=== PATIENT | female | born 1960 | race Caucasian/White ===

== ENCOUNTER → 2017-02-13 | Outpatient (CLI) | payer BC ==
[~2017-02-13] MED LIST: ASPI1TAB83 PO; CHOL100010 PO; NORT25CA2 PO; VAREPAK PO
[2017-02-13 12:25] LABS: BASO % 0.5 %; BASO ABS # 0.04 K/uL (0-0.2); COMPLETE YES; EOS % 4.2 %; HEMATOCRIT 45.8 % (37-47); IG% 0.1 %; LYMPH % 40.9 %; LYMPH ABS # 3.25 K/uL (1.2-3.4); MEAN CELL VOLUME 92.7 fL (80-100); MEAN CORPUSCULAR HEMOGLOBIN 30.2 pg (25-34); MEAN CORPUSCULAR HGB CONC 32.5 g/dl (32-36); MEAN PLATELET VOLUME 11.3 fL (7.4-10.4); MONO % 3.3 %; PLATELET COUNT 334 K/uL (130-400); RED BLOOD COUNT 4.94 M/uL (4.2-5.4); WHITE BLOOD COUNT 7.95 K/uL (4.8-10.8)
[2017-02-13 12:36] LABS: ALT/SGPT 21 U/L (12-78); BLOOD UREA NITROGEN 12 mg/dl (7-18); BUN/CREATININE RATIO 12.8 (10-20); CARBON DIOXIDE 26 mmol/L (21-32); CHLORIDE 105 mmol/L (98-107); CHOLESTEROL 222 mg/dl (0-200); CREATININE 0.94 mg/dl (0.60-1.20); GLUCOSE 90 mg/dl (70-99); POTASSIUM 4.3 mmol/L (3.5-5.1); SODIUM 140 mmol/L (136-145)
[2017-02-13 12:46] LABS: ALKALINE PHOSPHATASE 95 U/L (45-117); AST/SGOT 14 U/L (15-37); HDL CHOLESTEROL 56 mg/dl; LDL CHOLESTEROL CALCULATED 147 mg/dl; TRIGLYCERIDES 94 mg/dl (0-150); VERY LOW DENSITY LIPOPROT CALC 19 mg/dl
[2017-02-13 12:49] LABS: CALCIUM 9.6 mg/dl (8.5-10.1)
== END | disposition home or self-care (01) ==
LOC: C.LABBFT 07:35
PROVIDERS: ATTEND Internal Medicine
DX: Z00.00 Encounter for general adult medical examination without abnormal findings (principal); R07.9 Chest pain, unspecified; R53.83 Other fatigue

== ENCOUNTER → 2017-08-15 | Outpatient (CLI) | payer BC ==
--- NOTE | 2017-08-19 16:01 | MAMMOGRAPHY REPORT ---
BILATERAL DIGITAL SCREENING MAMMOGRAM WITH CAD: 08/15/2017 CLINICAL HISTORY: Routine screening. Patient has no complaints. TECHNIQUE: Current study was also evaluated with a Computer Aided Detection (CAD) system. Bilateral CC and MLO views were obtained. COMPARISON: Comparison is made to exams dated: 08/13/2016 mammogram and 08/04/2015 mammogram - [facility]. BREAST COMPOSITION: The tissue of both breasts is extremely dense, which lowers the sensitivity of m ammography. FINDINGS: No suspicious masses, calcifications, or areas of architectural distortion are noted in ei ther breast. There has been no significant interval change compared to prior exams. IMPRESSION: ACR BI-RADS CATEGORY 1: NEGATIVE There is no mammographic evidence of malignancy. A 1 year screening mammogram is recommended. The pa tient will receive written notification of the results. Approximately 10% of breast cancers are not detected with mammography. A negative mammographic report should not delay biopsy if a clinically suggestive mass is present. Donna Jones M.D. ah/:08/15/2017 15:58:40 Bilingual Legal Assistant: Jana PEREIRA(R)(M), [facility] letter sent: Normal 1/2 BI-RADS Code: ACR BI-RADS Category 1: Negative
== END | disposition home or self-care (01) ==
LOC: C.MAMM 07:10
PROVIDERS: ATTEND Internal Medicine
DX: Z12.31 Encounter for screening mammogram for malignant neoplasm of breast (principal)

== ENCOUNTER 2017-11-19 09:38 | Emergency (ER) | payer BC, OTHER ==
[~2017-11-19] VITALS: Ht 162.6 cm; Wt 71.9 kg
[2017-11-19 09:40] VITALS: TEMP 36.9; Ht 162.6 cm; Wt 71.9 kg
[2017-11-19] MEDS ORDERED: ASPIRIN 81 MG CHEW PO STA (10:08)
[2017-11-19] MEDS ORDERED: SODIUM CHLORIDE 0.9% 1000ML 1,000 ML IV STA (10:08)
[2017-11-19] MEDS ORDERED: NITROGLYCERIN 0.4 MG SL PER TAB CHARGE SL PRN (10:15)
[2017-11-19 10:23] LABS: BASO % 0.7 %; BASO ABS # 0.06 K/uL (0-0.2); EOS % 3.5 %; EOS ABS # 0.29 K/uL (0-0.5); HEMATOCRIT 41.7 % (37-47); HEMOGLOBIN 14.5 g/dL (12.0-16.0); IG# 0.01 K/uL (0.00-0.02); LYMPH % 46.7 %; LYMPH ABS # 3.83 K/uL (1.2-3.4); MEAN CELL VOLUME 91.9 fL (80-100); MEAN CORPUSCULAR HEMOGLOBIN 31.9 pg (25-34); MEAN CORPUSCULAR HGB CONC 34.8 g/dl (32-36); MEAN PLATELET VOLUME 10.4 fL (7.4-10.4); MONO ABS # 0.25 K/uL (0.11-0.59); NEUT ABS # 3.77 K/uL (1.4-6.5); PLATELET COUNT 274 K/uL (130-400); RED CELL DISTRIBUTION WIDTH CV 12.6 % (11.5-14.5); RED CELL DISTRIBUTION WIDTH SD 42.5 fL (36.4-46.3); WHITE BLOOD COUNT 8.21 K/uL (4.8-10.8)
--- NOTE | 2017-11-19 10:29 | DIAGNOSTIC IMAGING REPORT ---
CHEST ONE VIEW PORTABLE HISTORY: 57 years-old Female CHEST PAIN acute atypical chest pain COMPARISON: Chest radiograph 04/27/2015 TECHNIQUE: Portable AP view of the chest FINDINGS: Cardiac mediastinal and hilar silhouettes are within normal limits. Atherosclerosis of the aorta. There is no pneumothorax, pleural effusion, focal airspace consolidation or overt pulmonary edema. The bones of the chest appear grossly intact. IMPRESSION: No acute process. The above report was generated using voice recognition software. It may contain grammatical, syntax or spelling errors. Electronically signed by: Clemente Tamayo M.D. 11/19/2017 10:27 AM Dictated Date/Time: 11/19/2017 10:26 AM
[2017-11-19 10:41] LABS: ALBUMIN 3.9 gm/dl (3.4-5.0); ALT/SGPT 20 U/L (12-78); AST/SGOT 15 U/L (15-37); BLOOD UREA NITROGEN 11 mg/dl (7-18); CALCIUM 9.3 mg/dl (8.5-10.1); CARBON DIOXIDE 25 mmol/L (21-32); CREATININE 1.01 mg/dl (0.60-1.20); GLUCOSE 82 mg/dl (70-99); LIPASE 148 U/L (73-393); POTASSIUM 3.7 mmol/L (3.5-5.1); SODIUM 139 mmol/L (136-145)
[2017-11-19 10:44] LABS: ALKALINE PHOSPHATASE 89 U/L (45-117); TOTAL PROTEIN 7.4 gm/dl (6.4-8.2)
[2017-11-19] MEDS ORDERED: MoRPHine SULFATE 4 MG/ML 1 ML CARP\\VIAL IV STA (11:17)
--- NOTE | 2017-11-19 11:58 | Medical Consult ---
Consultation Date of Consultation: Nov 19, 2017. Attending Physician: History of Present Illness 57 y/o F smoker with no additional medical history. Pt presents with center R CP which has been present for 10 hours. She denies any radiation of the pain, n /v, diaphoresis, lightheadedness or SOB. Initial trop and EKG do not support acute ischemia. Past Medical/Surgical History Smoker Endometrial ablation in late 30s Family History Cancer FH: myocardial infarction FATHER Heart disease Hypertension Father with history of MS in 70s - was a nonsmoker Social History Smokes one pack daily - works in [employer] Smoking Status: Current Every Day Smoker Marital Status: single Housing Status: lives alone Occupation Status: employed Allergies Coded Allergies: No Known Allergies (Verified , 11/19/17) Current Inpatient Medications Current Inpatient Medications Medications (Trade) Dose Ordered Sig/[place] Route Start Time Stop Time Status Last Admin Dose Admin Sodium Chloride 1,000 ml @ 200 mls/hr Q5H STAT IV 11/19/17 10:08 11/19/17 15:07 11/19/17 10:22 200 MLS/HR Nitroglycerin (Nitrostat Tab) 0.4 mg Q5M PRN SL 11/19/17 10:15 12/19/17 10:14 11/19/17 10:23 0.4 MG Review of Systems Constitutional: No fever, No chills, No sweats Eyes: No worsening of vision ENT: No hearing loss, No unusual epistaxis, No nasal symptoms Respiratory: No cough, No sputum, No wheezing Cardiovascular: + chest pain Abdomen: No pain, No nausea, No vomiting Musculoskeletal: No joint pain Genitourinary - Female: No dysuria, No urinary frequency, No urinary urgency Neurologic: No memory loss, No paralysis, No weakness Psychiatric: No depression symptoms Endocrine: No fatigue Hematologic / Lymphatic: No abnormal bleeding/bruising Integumentary: No rash Allergic / Immunologic: No environmental allergies Physical Exam Date Time Temp Pulse Resp B/P (MAP) Pulse Ox O2 Delivery O2 Flow Rate FiO2 11/19/17 10:47 71 22 117/78 96 11/19/17 10:42 60 133/85 11/19/17 10:23 74 18 164/91 Room Air 11/19/17 10:02 75 11/19/17 09:40 36.9 77 18 155/91 96 Room Air General Appearance: WD/WN, no apparent distress, + pertinent finding (Average weight middle-aged F - no distress) Head: normocephalic, atraumatic Eyes: normal inspection ENT: normal ENT inspection, pharynx normal Neck: supple, no JVD Respiratory/Chest: chest non-tender, lungs clear, normal breath sounds, + pertinent finding (Chest is tender to palpation on R ) Cardiovascular: regular rate, rhythm, no edema, no gallop Abdomen/GI: normal bowel sounds, non tender, soft Back: normal inspection, no CVA tenderness Extremities/Musculoskelatal: normal inspection, no calf tenderness, normal capillary refill, no pedal edema, normal range of motion 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, no motor/sensory deficits, alert, oriented x 3 Skin: normal color Laboratory Results Last 24 Hours Test 11/19/17 10:05 11/19/17 10:30 White Blood Count 8.21 K/uL Red Blood Count 4.54 M/uL Hemoglobin 14.5 g/dL Hematocrit 41.7 % Mean Corpuscular Volume 91.9 fL Mean Corpuscular Hemoglobin 31.9 pg Mean Corpuscular Hemoglobin Concent 34.8 g/dl Platelet Count 274 K/uL Mean Platelet Volume 10.4 fL Neutrophils (%) (Auto) 46.0 % Lymphocytes (%) (Auto) 46.7 % Monocytes (%) (Auto) 3.0 % Eosinophils (%) (Auto) 3.5 % Basophils (%) (Auto) 0.7 % Neutrophils # (Auto) 3.77 K/uL Lymphocytes # (Auto) 3.83 K/uL Monocytes # (Auto) 0.25 K/uL Eosinophils # (Auto) 0.29 K/uL Basophils # (Auto) 0.06 K/uL RDW Standard Deviation 42.5 fL RDW Coefficient of Variation 12.6 % Immature Granulocyte % (Auto) 0.1 % Immature Granulocyte # (Auto) 0.01 K/uL Sodium Level 139 mmol/L Potassium Level 3.7 mmol/L Chloride Level 106 mmol/L Carbon Dioxide Level 25 mmol/L Anion Gap 8.0 mmol/L Blood Urea Nitrogen 11 mg/dl Creatinine 1.01 mg/dl Est Creatinine Clear Calc Drug Dose 61.2 ml/min Estimated GFR () 72.6 Estimated GFR (Non- 62.6 BUN/Creatinine Ratio 10.7 Random Glucose 82 mg/dl Calcium Level 9.3 mg/dl Total Bilirubin 0.3 mg/dl Direct Bilirubin < 0.1 mg/dl Aspartate Amino Transf (AST/SGOT) 15 U/L Alanine Aminotransferase (ALT/SGPT) 20 U/L Alkaline Phosphatase 89 U/L Total Protein 7.4 gm/dl Albumin 3.9 gm/dl Lipase 148 U/L Bedside Troponin I < 0.030 ng/ml Assessment & Plan 57 y/o F presenting with atypical CP Pt has risk factors - post-menopausal, smoker, family history. Presentation/ assessment, labs and EKG do not support cardiac etiology presently. We will obtain an additional trop at a 3 hour interval. If her CP has resolved and there are no changes in labs, we have arranged for an outpt stress. She is told to take 81mg ASA daily pending stress testing. She is issued a rebuke regarding her smoking - explained relation to cardiovascular disease - advised on cessation. Total time for this consult including review of labs, meds, EKG, records - discussion with pt - scheduling of stress test - 35 min Addendum 2nd trop (-) CP resolved with Toradol Stress test confirmed with Dr Carlos 12:45 09
[2017-11-19] MEDS ORDERED: KETOROLAC TROMETHAMINE 30 MG/ML VIAL IV ONE (12:15)
[2017-11-19 15:10] VITALS: BP 129/77; PULSE 56; O2SAT 99
--- NOTE | 2017-11-19 15:32 | EMERGENCY ROOM VISIT NOTE ---
ED Visit Note First contact with patient: 09:48 Chief Complaint: Chest pain. History of Present Illness: Ms. Loera is a 57 year-old white female who ambulates into the ED accompanied by her mother complaining of chest pain. Historically patient reports she has a history of tobacco use and a family history of a father who had coronary artery disease. Patient reports when she awoke this morning to get ready for work at 4 AM, almost 6 hours ago, she noted that she was having chest pain. Since that time the pain has been constant. Currently she describes her pain as a pressure- like sensation. There is mild right-sided prominence to the chest pain. She reports the pain is radiating into the epigastrium area and into the thoracic back and then up the cervical spine. Her pain slightly worsens with palpation of the sternum. She has not identified any alleviating factors related to the pain. She has not taken any medications for pain prior to arrival at the hospital. She denies any associated symptoms including recent upper respiratory tract symptoms, fevers, cough, shortness of breath, wheezing, palpitations, previous clots, claudication, cramping, recent surgery/inactivity/ estrogen and tobacco use, abdominal pain, nausea, vomiting. Additionally she does report she had a similar episode of chest pain approximately 2 years ago and reports at that time a stress test was performed and was reported as negative and she was encouraged to use 81 mg of aspirin daily; she does report she started using the aspirin but then stopped about over a year ago and has not returned. Review of Systems: As noted above in history of present illness. All body systems were reviewed and found to be negative as noted above. Past Medical History: Dyslipidemia. Current Medications: Patient denies. Allergies to Medications: Patient denies. Social History: Patient is currently employed; she feels safe in her home environment; she admits to tobacco use and denies alcohol use. Physical Examination: Vital Signs: Date Time Temp Pulse Resp B/P (MAP) Pulse Ox O2 Delivery O2 Flow Rate FiO2 11/19/17 14:01 60 18 127/76 99 Room Air 11/19/17 13:31 57 14 98 Room Air 11/19/17 13:30 137/74 11/19/17 13:17 59 11/19/17 13:01 60 14 99 Room Air 11/19/17 13:00 66 22 120/76 11/19/17 12:30 52 14 119/78 99 Room Air 11/19/17 12:01 117/74 11/19/17 12:00 57 21 97 Room Air 11/19/17 11:30 55 21 141/82 99 Room Air 11/19/17 11:20 52 15 124/77 95 Room Air 11/19/17 10:47 71 22 117/78 96 11/19/17 10:42 60 133/85 11/19/17 10:23 74 18 164/91 Room Air 11/19/17 10:02 75 11/19/17 09:40 36.9 77 18 155/91 96 Room Air GENERAL: 57-year-old female in mild distress due to pain, nontoxic-appearing, afebrile and hemodynamically stable. NEUROLOGICAL: Awake, alert and oriented to person, place and time. Answering questions appropriately and following commands. Normal gait. Good hand eye coordination. SKIN: Warm, dry and pink. No soft tissue eruptions or trauma noted. HEENT: Atraumatic and normocephalic. PERRL. Sclera white and conjunctiva pink. Oral cavity moist and pink. Pharynx is nonerythematous or edematous. Speech normal. No lymphadenopathy. Trachea midline. No jugular venous distention. No carotid bruits. BACK: No tenderness over the bony spine. No CVA tenderness. THORAX: Lungs sounds are clear to auscultation and equal bilaterally with symmetrical chest wall. No wheezing, rales or rhonchi. Mild tenderness over the lower sternum without bony deformity, bony crepitus, swelling, ecchymosis or subcutaneous air. HEART: Regular rate and rhythm. No gallops, rubs or murmurs are appreciated. No lifts, heaves or thrills. PMI is not displaced. ABDOMEN: Flat, soft and nontender. Positive bowel sounds in all quadrants. No guarding, rigidity or organomegaly. EXTREMITIES: Moves all extremities well on command and with purpose. All distal neurovascular statuses are intact and equal bilaterally. No dependent edema or calf tenderness/cords. ED Course: Patient is assessed as noted above. Patient's medication list was reviewed. Laboratory Testing: Test 11/19/17 10:05 11/19/17 10:30 11/19/17 13:36 Range/Units White Blood Count 8.21 4.8-10.8 K/uL Red Blood Count 4.54 4.2-5.4 M/uL Hemoglobin 14.5 12.0-16.0 g/dL Hematocrit 41.7 37-47 % Mean Corpuscular Volume 91.9 80-100 fL Mean Corpuscular Hemoglobin 31.9 25-34 pg Mean Corpuscular Hemoglobin Concent 34.8 32-36 g/dl Platelet Count 274 130-400 K/uL Mean Platelet Volume 10.4 7.4-10.4 fL Neutrophils (%) (Auto) 46.0 % Lymphocytes (%) (Auto) 46.7 % Monocytes (%) (Auto) 3.0 % Eosinophils (%) (Auto) 3.5 % Basophils (%) (Auto) 0.7 % Neutrophils # (Auto) 3.77 1.4-6.5 K/uL Lymphocytes # (Auto) 3.83 1.2-3.4 K/uL Monocytes # (Auto) 0.25 0.11-0.59 K/uL Eosinophils # (Auto) 0.29 0-0.5 K/uL Basophils # (Auto) 0.06 0-0.2 K/uL RDW Standard Deviation 42.5 36.4-46.3 fL RDW Coefficient of Variation 12.6 11.5-14.5 % Immature Granulocyte % (Auto) 0.1 % Immature Granulocyte # (Auto) 0.01 0.00-0.02 K/uL Sodium Level 139 136-145 mmol/L Potassium Level 3.7 3.5-5.1 mmol/L Chloride Level 106 98-107 mmol/L Carbon Dioxide Level 25 21-32 mmol/L Anion Gap 8.0 3-11 mmol/L Blood Urea Nitrogen 11 7-18 mg/dl Creatinine 1.01 0.60-1.20 mg/dl Est Creatinine Clear Calc Drug Dose 61.2 ml/min Estimated GFR () 72.6 Estimated GFR (Non- 62.6 BUN/Creatinine Ratio 10.7 10-20 Random Glucose 82 70-99 mg/dl Calcium Level 9.3 8.5-10.1 mg/dl Total Bilirubin 0.3 0.2-1 mg/dl Direct Bilirubin < 0.1 0-0.2 mg/dl Aspartate Amino Transf (AST/SGOT) 15 15-37 U/L Alanine Aminotransferase (ALT/SGPT) 20 12-78 U/L Alkaline Phosphatase 89 45-117 U/L Total Protein 7.4 6.4-8.2 gm/dl Albumin 3.9 3.4-5.0 gm/dl Lipase 148 73-393 U/L Bedside Troponin I < 0.030 0-0.045 ng/ml Troponin I < 0.015 0-0.045 ng/ml Chest X-Rays: Was read by myself and the radiologist showing no acute infiltrates, effusions or pneumothorax. Normal heart silhouette and bony anatomy. Radiologist noted atherosclerosis of the aorta. EKG: Was read by myself and reviewed with Dr. Mott; shows normal sinus rhythm with a ventricular rate of 75 bpm. Normal axis, intervals and complexes. No acute ST changes indicating ischemia, injury or infarction. This was compared to her previous from April 2015 and no acute changes were noted. Patient was hydrated with normal saline and she initially received a total of 0.8 mg of sublingual nitroglycerin without relief of her discomfort. She was then given 4 mg of morphine IV for her pain. Patient was reassessed multiple times during her stay in the emergency department. Patient's case was reviewed with Dr. Harkins; we agreed on diagnostic approach, treatment, disposition and plan. Patient's case was insulted with case management and the [facility]. [facility] Barillas[facility] the patient's troponin and she had no increase. He discharged the patient to home with follow-up with cardiology for stress testing. Please see his notes and orders for final disposition and plan. Clinical Impression: Chest pain. Decision-Making: Initially my differential diagnosis I considered acute coronary syndrome, thoracic aneurysm, pneumothorax, pneumonia, pulmonary embolism, musculoskeletal disorder and other causes. Disposition: Patient discharged home in stable condition; prior to departure she was reassessed and subjectively reported she was pain and symptom-free. Plan: Please see Dr. Jones notes and orders for final plan.
== END 2017-11-19 15:00 | disposition home or self-care (01) ==
LOC: C.EDB 09:40
DX: R07.9 Chest pain, unspecified (principal); F17.200 Nicotine dependence, unspecified, uncomplicated; Z78.0 Asymptomatic menopausal state; Z82.49 Family history of ischemic heart disease and other diseases of the circulatory system; Z80.9 Family history of malignant neoplasm, unspecified

== ENCOUNTER → 2017-12-24 | Outpatient (CLI) | payer OTHER ==
--- NOTE | 2017-12-24 16:32 | DIAGNOSTIC IMAGING REPORT ---
CT LUNG SCREENING, LOW DOSE WITH COMPUTER-AIDED DETECTION (CAD) CLINICAL HISTORY: Smoking history. Cancer screening. COMPARISON STUDY: Chest x-ray dated 11/19/2017. Chest CT dated 04/27/2015. CT DOSE: 71.86 mGy.cm TECHNIQUE: Low-dose helical CT was acquired without intravenous contrast from lung apices to bases and reconstructed at 2.5 mm every 2 mm. CAD was utilized for this study. A dose lowering technique was utilized adhering to the principles of ALARA. FINDINGS: Thyroid: Imaged portions of the thyroid gland are normal in appearance. Thoracic aorta: The thoracic aorta is normal in course and caliber, noting standard 3 vessel arch anatomy. Heart: The heart is normal in size and without pericardial effusion. Lungs and pleural spaces: There is no airspace consolidation or pleural effusion. Mild diffuse peribronchial thickening suggests reactive air disease. No concerning pulmonary lesion is identified. Minimal dependent atelectasis is the right lung base. Mediastinum: There is no mediastinal lymphadenopathy. Gloria: Not well assessed without IV contrast. Axilla: Shotty axillary lymph nodes are not pathologically enlarged by size criteria. Upper abdomen: Partially visualized upper abdominal viscera is within normal limits. Skeletal structures: There are no lytic or blastic osseous lesions. IMPRESSION: 1. No concerning pulmonary lesion is identified. 2. There is no airspace consolidation or pleural effusion. Mild peribronchial thickening suggests reactive airway disease. Clinical correlation will be required. CAD FINDINGS: Overall Lung RADS Category: 1 Lung RADS Management Recommendation: Continue annual lung cancer screening. Lung RADS Follow Up Date: 2018-12-24 Electronically signed by: Mike Underwood M.D. 12/24/2017 4:30 PM Dictated Date/Time: 12/24/2017 4:25 PM
== END | disposition home or self-care (01) ==
LOC: C.CTS 15:52
PROVIDERS: ATTEND Physician Assistant Medical
DX: F17.210 Nicotine dependence, cigarettes, uncomplicated (principal)